=== PATIENT | male | born 1980 ===

== ENCOUNTER 2018-07-07 16:27 | Emergency (ER) | payer OTHER ==
[2018-07-07 16:41] VITALS: BP 123/79; PULSE 80; RESP 16; TEMP 98.3; O2SAT 98
--- NOTE | 2018-07-07 16:57 | C.PDOC ---
History Of Present Illness 37 y/o male presents to ED complaining of pain that starts from the right tragus going down to TMJ for 1 month. Denies trauma, fall, or similar pain from the past. Patient states he did not take any medications for the pain. Time Seen by Provider: 07/07/18 16:44 Chief Complaint (Nursing): Dental Pain History Per: Patient History/Exam Limitations: no limitations Onset/Duration Of Symptoms: Days Current Symptoms Are (Timing): Still Present Past Medical History Reviewed: Historical Data, Nursing Documentation, Vital Signs Vital Signs: Last Vital Signs Temp 98.3 F 07/07/18 16:37 Pulse 80 07/07/18 16:37 Resp 16 07/07/18 16:37 BP 123/79 07/07/18 16:37 Pulse Ox 98 07/07/18 16:37 - Medical History PMH: No Chronic Diseases Surgical History: No Surg Hx Family History: States: No Known Family Hx - Social History Hx Alcohol Use: No Hx Substance Use: No - Immunization History Hx Tetanus Toxoid Vaccination: No Hx Influenza Vaccination: No Hx Pneumococcal Vaccination: No Review Of Systems Except As Marked, All Systems Reviewed And Found Negative. ENT: Positive for: Ear Pain (from R tragus down to TMJ) Physical Exam - Physical Exam Appears: Non-toxic, No Acute Distress Skin: Warm, Dry Head: Atraumatic, Normacephalic, Tenderness (tenderness to palpation of R sideburn area down to R TMJ) Eye(s): bilateral: Normal Inspection, PERRL, EOMI Ear(s): Bilateral: Normal Nose: Normal Oral Mucosa: Moist Tongue: Normal Appearing Lips: Normal Appearing Teeth: Normal Dentition, No Caries, No Edentulous, No Tender To Palpation Gingiva: Normal Appearing Throat: Normal Neck: Normal Lymphatic: Normal Exam Chest: Symmetrical Cardiovascular: Rhythm Regular, No Murmur Respiratory: Normal Breath Sounds, No Rales, No Rhonchi, No Wheezing Extremity: Bilateral: Atraumatic, Normal Color And Temperature, Normal ROM Neurological/Psych: Oriented x3, Normal Speech ED Course And Treatment O2 Sat by Pulse Oximetry: 98 (RA) Pulse Ox Interpretation: Normal Medical Decision Making Medical Decision Making: Plan: --Ibuprofen On re-evaluation, patient is resting comfortably, and is in no acute distress. Patient is instructed to follow up with specialist in 3-5 days for further evaluation. Disposition Counseled Patient/Family Regarding: Diagnosis, Need For Followup, Rx Given - Disposition Referrals: [facility] [Outside] [facility] [Outside] Alonso Bocanegra MD [Staff Provider] - Disposition: HOME/ ROUTINE Disposition Time: 16:58 Condition: STABLE Additional Instructions: FOLLOW UP WITH DENTIST, CLINIC AND IF NEEDED WITH ENT NEXT WEEK. IF SYMPTOMS GET WORSE OR ANY NEW CONCERNING SYMPTOMS DEVELOP RETURN TO ED. Prescriptions: Ibuprofen [Motrin Tab] 1 tab PO Q6H PRN #15 tab PRN Reason: Pain, Moderate (4-7) Instructions: Temporomandibular Joint (TMJ) Disorders (DC) Forms: [employer] (Beninese), Gen Discharge Inst English Print Language: MAORI - Clinical Impression Clinical Impression: TMJ (temporomandibular joint disorder) - PA / GRIND OPERATOR / Resident Statement MD/DO has reviewed & agrees with the documentation as recorded. - Scribe Statement The provider has reviewed the documentation as recorded by the Scribe Renata Black All medical record entries made by the Kellibclifton were at my direction and personally dictated by me. I have reviewed the chart and agree that the record accurately reflects my personal performance of the history, physical exam, medical decision making, and the department course for this patient. I have also personally directed, reviewed, and agree with the discharge instructions and disposition.
== END 2018-07-07 17:10 | disposition home or self-care (01) ==
LOC: MERGE 16:27 → C.ER 16:27
DX: M26.601 Right temporomandibular joint disorder, unspecified (principal)

== ENCOUNTER → 2018-11-12 | Outpatient (CLI) | payer OTHER | LOC: C.USIC 10:57 ==